=== PATIENT | male | born 1985 | race Two or more races ===

== ENCOUNTER 2024-02-21 05:08 | Day surgery (SDC) | payer OTHER ==
[2024-02-21] MEDS ORDERED: CEFAZOLIN SODIUM 1,000 MG VIAL ONE (06:33)
[2024-02-21] MEDS ORDERED: BUPIVACAINE HCL/MPF 0.5% 30ML VIAL ONE ×2 (07:52→08:25)
[2024-02-21] MEDS ORDERED: TYLENOL ARTHRI650 MG PO (09:03)
[2024-02-21] MEDS ORDERED: MIRALAX17 GM PO (09:03)
[2024-02-21] MEDS ORDERED: TRAMADOL HCL50 MG PO (09:03)
[2024-02-21] MEDS ORDERED: NEURONTIN300 MG PO (09:03)
== END 2024-02-21 11:32 | disposition home or self-care (01) ==
LOC: CIR.AMB 05:08
PROVIDERS: ATTEND Surgery
DX: K43.6 Other and unspecified ventral hernia with obstruction, without gangrene (principal); K42.0 Umbilical hernia with obstruction, without gangrene; Z91.013 Allergy to seafood
CPT/HCPCS: 49594; C1781